=== PATIENT | female | born 2000 | race Caucasian/White ===

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

== ENCOUNTER 2020-02-26 05:33 | Outpatient (CLI) | payer OTHER, MEDICAID ==
[~2020-02-26] VITALS: Ht 162 cm; Wt 104.5 kg
[~2020-02-26 05:33] MED LIST changes: +DCS100C PO; +DOCU-143 PO; +IBUP-1780 PO; +OXYC1TAB12 PO; +OXYC1TAB87 PO
[2020-02-27] MEDS ORDERED: IBUP-1780 PO (14:12)
== END 2020-02-26 11:24 ==
LOC: PREOP 05:33
PROVIDERS: ATTEND Obstetrics & Gynecology
DX: Z01.818 Encounter for other preprocedural examination (principal)

== ENCOUNTER 2020-02-27 13:11 | Day surgery (SDC) | payer OTHER, MEDICAID ==
[2020-02-27] VITALS (9 sets, daily range): BP systolic 113–163; BP diastolic 53–90
[~2020-02-27] VITALS: Ht 162 cm; Wt 104.5 kg
[2020-02-27] MEDS ORDERED: SEVOFLURANE (ULTANE) 15 ML INHAL SOLN ONE ×2 (13:37→15:09)
[2020-02-27] MEDS ORDERED: ONDANSETRON 4 MG/2 ML (SDV) Z0FRAN ONE (13:37)
[2020-02-27] MEDS ORDERED: LIDOCAINE PF 2% 5 ML (XYLOCAINE) VIAL ONE (13:37)
[2020-02-27] MEDS ORDERED: proPOfol 200 MG/20 ML (DIPRIVAN) VIAL IV ONE (13:37)
[2020-02-27] MEDS ORDERED: MIDAZOLAM 2 MG/2 ML (VERSED) VIAL ONE (13:38)
[2020-02-27] MEDS ORDERED: fentaNYL INJECTION 100 MCG/2 ML AMP ONE (13:38)
[2020-02-27] MEDS ORDERED: LACTATED RINGERS 1,000 ML IV PRN (13:44)
[2020-02-27] MEDS ORDERED: LEVOFLOXACIN 250 MG/50 ML IVPB 50 ML IV ONE (13:45)
--- NOTE | 2020-02-27 14:10 | Progress Note-Pre Operative ---
Pre-Operative Progress Note H&P Reviewed The H&P was reviewed, patient examined and no changes noted. Date Seen by Provider: Feb 27, 2020 Time Seen by Provider: 14:09 Date H&P Reviewed: Feb 27, 2020 Time H&P Reviewed: 14:09 Pre-Operative Diagnosis: DUB/MENORRHAGIA JORDANA SCHULER MD Feb 27, 2020 14:10
[2020-02-27] MEDS ORDERED: D5 LR IV SOLUTION 1,000 ML IV SCH (14:11)
--- NOTE | 2020-02-27 14:11 | Progress Note-Post Operative ---
Post-Operative Progess Note Surgeon (s)/Metal Dresser (s) Surgeon JORDANA SCHULER MD Metal Dresser: NONE Pre-Operative Diagnosis DUB/MENORRHAGIA Post-Operative Diagnosis SAME with patghology pending Procedure & Operative Findings Date of Procedure 02/27/20 Procedure Performed/Findings HYSTEROSCOPY WITH D&C Anesthesia Type GETA Estimated Blood Loss Estimated blood loss (mL): minimal Specimens/Packing Specimens Removed ENDOMETRIAL TISSUE JORDANA SCHULER MD Feb 27, 2020 14:11
[2020-02-27] MEDS ORDERED: IBUP-1780 PO (14:12)
--- NOTE | 2020-02-27 14:13 | Discharge Inst-Surgical ---
Discharge Inst-Surgical Depart Medication/Instructions New, Converted or Re-Newed RX: Call to Patients Pharmacy Consults/Follow Up Patient Instructions: DIRECTED Orders & Referrals Follow Up Appt: Call to make follow up appt. for patient in 2 weeks. Activity: Rest for 24 hours, than as tolerated. Please call in RX to patient pharmacy. Diet: As tolerated. may shower or tub bathe as desired. No driving for 24 hours, no alcoholic beverages for 24 hours, and nothing per vagina (no tampons, douching, or intercoUrse) for 2 weeks. Patient to return to the clinic as soon as possible for: Temperature greater than 101F, Severe Pain, Foul discharge from incision or vagina, Excessive Bleeding (more than a period). Diet Discharge Diet: No Restrictions JORDANA SCHULER MD Feb 27, 2020 14:13
[2020-02-27] MEDS ORDERED: PROMETHAZINE INJ 25 MG/ML (PHENERGAN) AMP IM ONE (14:15)
[2020-02-27] MEDS ORDERED: KETOROLAC 30 MG/ML VIAL IVP ONE (14:15)
[2020-02-27] MEDS ORDERED: MEPERIDINE (DEMEROL) INJ 100 MG/ML IM ONE (14:15)
[2020-02-27] MEDS ORDERED: HYDROcodone/APAP 10 MG/325 MG (LORTAB) TAB PO PRN (14:15)
[2020-02-27] MEDS ORDERED: ONDANSETRON 4 MG/2 ML (SDV) Z0FRAN IVP PRN ×2 (14:15→15:15)
[2020-02-27 14:29] LABS: BASOPHILS % (AUTO) 0 % (0-10); EOSINOPHILS # (AUTO) 0.1 10^3/uL (0.0-0.3); EOSINOPHILS % (AUTO) 2 % (0-10); HEMATOCRIT 34 % (35-52); HEMOGLOBIN 10.9 G/DL (11.5-16.0); LYMPHOCYTES # (AUTO) 2.2 X 10^3 (1.0-4.0); LYMPHOCYTES % (AUTO) 27 % (12-44); MEAN CORPUSCULAR HEMOGLOBIN 26 PG (25-34); MEAN CORPUSCULAR HGB CONC 32 G/DL (32-36); MEAN CORPUSCULAR VOLUME 80 FL (80-99); MEAN PLATELET VOLUME 8.4 FL (7.4-10.4); MONOCYTES # (AUTO) 0.8 X 10^3 (0.0-1.0); MONOCYTES % (AUTO) 10 % (0-12); NEUTROPHILS % (AUTO) 61 % (42-75); PLATELET COUNT 383 10^3/uL (130-400); WHITE BLOOD COUNT 8.2 10^3/uL (4.3-11.0)
--- NOTE | 2020-02-27 15:11 | Anesthesia-General Post-Op ---
General Patient Condition Mental Status/LOC: Same as Preop Cardiovascular: Satisfactory Nausea/Vomiting: Absent Respiratory: Satisfactory Pain: Controlled Complications: Absent Post Op Complications Complications None Follow Up Care/Instructions Patient Instructions None needed. Anesthesia/Patient Condition Patient Condition Patient is doing well, no complaints, stable vital signs, no apparent adverse anesthesia problems. ALIA ABDI DO Feb 27, 2020 15:11
[2020-02-27] MEDS ORDERED: morphine INJ 10 MG/ML 1ML (SYR OR VIAL) IVP ONE (15:15)
[2020-02-27] MEDS ORDERED: HYDROmorphone 2 MG/ML VIAL (DILAUDID) IV ONE (15:15)
--- NOTE | 2020-02-27 23:22 | OPERATIVE REPORT ---
DATE OF SERVICE: 02/27/2020 PREOPERATIVE DIAGNOSES: Dysfunctional uterine bleeding and menorrhagia. POSTOPERATIVE DIAGNOSES: Dysfunctional uterine bleeding and menorrhagia with pathology pending. OPERATIVE PROCEDURE: Hysteroscopy with directed biopsy and D and C. OPERATIVE DESCRIPTION: With the patient in the supine position under satisfactory general anesthesia, she was repositioned in the dorsal lithotomy position in the Isael stirrups and prepped and draped in the usual fashion for vaginal surgery. Urinary bladder was drained with a straight catheter. A weighted speculum placed in posterior fornix of vagina. The cervix exposed and grasped anteriorly with a single tooth tenaculum. The patient had a copper T IUD that was removed easily and set aside for replacement later. The cervix was then serially dilated to accommodate a hysteroscope, which was introduced using LR as a distending medium. The endometrial cavity was examined. The endometrial cavity was populated with extensive numerous polypoid-appearing tissue masses. Truck Despatcher biopsy was taken and then the hysteroscope was removed and endometrial cavity sharply curettaged with a large amount of endometrial appearing tissue and polypoid-appearing tissue. The curettage was performed in all 4 quadrants to good uterine cry. The hysteroscope was reintroduced and still remained several fragments of tissue. The hysteroscope was removed. Additional curettage was performed with removal of those fragments and then the hysteroscope was used to examine the endometrial cavity final time. There was no significant bleeding and the bulk of the abnormal appearing tissue was completely removed. The IUD was replaced in the usual manner at this point with the strings protruding approximately 1.5 cm to 2 cm from the cervical os. With sponge and needle counts correct, hemostasis assured, no bleeding from the cervical os and no bleeding from the puncture sites from the tenaculum. The procedure was complete and terminated. Sponge and needle counts were correct. Blood loss was around maybe 50 to 70 mL. The patient tolerated the procedure well and was uneventfully awakened from her general anesthesia and transferred to recovery room in stable condition. Job ID: [id number] DocumentID: [id number] Dictated Date: 02/27/2020 14:55:18 Dry Chain Worker Date: 02/27/2020 23:21:50 Dictated By: JORDANA SCHULER MD [facility]
== END 2020-02-27 17:10 | disposition home or self-care (01) ==
LOC: SDC 13:11
PROVIDERS: ATTEND Obstetrics & Gynecology
DX: N84.0 Polyp of corpus uteri (principal); N92.0 Excessive and frequent menstruation with regular cycle; Z11.2 Encounter for screening for other bacterial diseases; F32.9 Major depressive disorder, single episode, unspecified; E66.9 Obesity, unspecified; Z88.1 Allergy status to other antibiotic agents; Z68.39 Body mass index [BMI] 39.0-39.9, adult; Z86.19 Personal history of other infectious and parasitic diseases
CPT/HCPCS: 36415; 84703; 85025; 87081; 88305

== ENCOUNTER 2020-08-01 20:09 | Emergency (ER) | payer OTHER, MEDICAID ==
[~2020-08-01] VITALS: Ht 162.5 cm; Wt 95.2 kg
[~2020-08-01 20:09] MED LIST changes: -RISP0.5T3; +RISP0.5T65
[2020-08-01 20:17] VITALS: BP 129/68
--- NOTE | 2020-08-01 20:29 | ED Lower Extremity ---
General Chief Complaint: Lower Extremity Stated Complaint: FALL - R ANKLE INJ Source: patient Exam Limitations: no limitations History of Present Illness Date Seen by Provider: Aug 01, 2020 Time Seen by Provider: 20:17 Initial Comments To ER with right lateral ankle pain after she fell down some stairs at home about 1.5 hours ago. No other injury. Onset: just prior to arrival Severity: moderate Pain/Injury Location: right ankle Method of Injury: fell Modifying Factors: Worse With Movement Allergies and Home Medications Allergies Coded Allergies: cefdinir (Verified Allergy, Intermediate, HIVES, 02/26/20) Home Medications Ibuprofen 800 Mg Tablet, 800 MG PO Q6H PRN for PAIN Prescribed by: JORDANA SAUL on 02/27/20 1412 Patient Home Medication List Home Medication List Reviewed: Yes Review of Systems Constitutional: see HPI EENTM: see HPI Respiratory: no symptoms reported Cardiovascular: no symptoms reported Genitourinary: no symptoms reported Musculoskeletal: see HPI Skin: no symptoms reported Psychiatric/Neurological: No Symptoms Reported Past Heiujzn-Heidbd-Sopwbl Hx Patient Social History 2nd Hand Smoke Exposure: No Recent Hopitalizations: No Immunizations Up To Date PED Vaccines UTD: Yes Date of Influenza Vaccine: Apr 24, 2019 Seasonal Allergies Seasonal Allergies: No Past Medical History Surgeries: Yes (knee sx) Adenoidectomy, Bladder Surgery, Gallbladder, Orthopedic, Tonsillectomy Respiratory: No Cardiac: No Neurological: No Reproductive Disorders: No Female Reproductive Disorders: Denies, Polycystic Ovarian Dis Sexually Transmitted Disease: No HIV/AIDS: No Genitourinary: No Gastrointestinal: No Gall Bladder Disease Musculoskeletal: No Endocrine: No HEENT: Yes (GLASSES) Loss of Vision: Denies Hearing Impairment: Denies Cancer: No Psychosocial: Yes Depression Integumentary: No Blood Disorders: No Adverse Reaction/Blood Tranf: No (N/A) Family Medical History No Pertinent Family Hx, Heart Disease, DVT/PE Physical Exam Vital Signs Capillary Refill : Height, Weight, BMI Height: 5'4.00" Weight: 207lbs. 8.0oz. [id number]; 39.81 BMI Method:Stated General Appearance: WD/WN, no apparent distress Neck: non-tender, full range of motion Hips: bilateral hip non-tender, bilateral hip normal inspection, bilateral hip normal range of motion Legs: bilateral leg non-tender, bilateral leg normal inspection, bilateral leg normal range of motion Knees: bilateral knee non-tender, bilateral knee normal inspection, bilateral knee normal range of motion Ankles: bilateral ankle non-tender, bilateral ankle normal inspection, bilateral ankle normal range of motion; right ankle other (The right ankle is normal in appearance nontender when I touch it, no swelling no erythema no deformity) Neurologic/Psychiatric: alert, normal mood/affect, oriented x 3 Skin: normal color, warm/dry Progress/Results/Core Measures Results/Orders My Orders Orders - SHANE MARQUIS APRN Ankle, Right, 3 Views (08/01/20 20:24) Departure Impression Primary Impression: Right ankle sprain Qualified Codes: S93.401A - Sprain of unspecified ligament of right ankle, initial encounter Disposition: 01 HOME, SELF-CARE Condition: Stable Departure-Patient Inst. Decision time for Depature: 20:41 Referrals: OLVIN CEJA MD (PCP/Family) Primary Care Physician Patient Instructions: Ankle Sprain Add. Discharge Instructions: 1. Tylenol and ibuprofen for pain control 2. Elevate the ankle as much as possible. All discharge instructions reviewed with patient and/or family. Voiced understanding. SHANE MARQUIS APRN Aug 01, 2020 20:29
--- NOTE | 2020-08-01 20:47 | Diagnostic Imaging Report ---
EXAMINATION: Right ankle at 8:35 p.m. INDICATION: Injury, ankle pain, three views were obtained. COMPARISON: There is no prior study available for comparison. FINDINGS: There is no fracture, dislocation or acute bony abnormality identified. The ankle mortise is not widened and the talar dome is smooth. The soft tissues are unremarkable. IMPRESSION: There is no evidence for an acute bony abnormality. Dictated by: Dictated on workstation # [id number]
== END 2020-08-01 20:46 | disposition home or self-care (01) ==
LOC: EDUNIT# 20:09 → ER 20:11
DX: S93.401A Sprain of unspecified ligament of right ankle, initial encounter (principal); Z88.1 Allergy status to other antibiotic agents; W10.9XXA Fall (on) (from) unspecified stairs and steps, initial encounter; Y92.009 Unspecified place in unspecified non-institutional (private) residence as the place of occurrence of the external cause
CPT/HCPCS: 73610

== ENCOUNTER 2020-12-22 00:26 | Emergency (ER) | payer OTHER, MEDICAID ==
[~2020-12-22] VITALS: Ht 162.5 cm; Wt 100.0 kg
[~2020-12-22 00:26] MED LIST changes: -CIPR500T4 PO; +CIPR500T5 PO; +SERT-413; +SERT-414; -SERT100T8; -SERT50TA9
--- NOTE | 2020-12-22 01:02 | ED Chest Pain ---
General Chief Complaint: Chest Pain Stated Complaint: CP Source: patient History of Present Illness Date Seen by Provider: Dec 22, 2020 Time Seen by Provider: 00:36 Initial Comments PT ARRIVES VIA POV FROM HOME C/O CHEST PAIN SINCE YESTERDAY AM PAIN ALL ACROSS UPPER CHEST PAIN IS CONSTANT NOTHING WORSENS OR IMPROVES PAIN NO RADIATION OF PAIN TOOK TYLENOL X 1 AT NOON TODAY, NO RELIEF. HAS NOT TAKEN ANYTHING ELSE FOR PAIN C/O SLIGHT SHORTNESS OF BREATH NO COUGH NO FEVER/SWEATS/CHILLS + HEADACHE + BODY ACHES NO NAUSEA/VOMITING/DIARRHEA/ABDOMINAL PAIN NO LOSS OF TASTE OR SMELL NO SORE THROAT PT HAS HISTORY OF SAME--APPROXIMATELY 5 TIMES BEFORE NO DIAGNOSIS PT WAS EXPOSED TO COVID-19 LAST WEEKEND AT [facility] FOR FATHER'S DAY WENT THRU DRIVE THRU COVID-19 TESTING AT [facility] TODAY, WAS TOLD TEST WAS NEGATIVE LMP--END OF OCTOBER, IUD IN PLACE PCP: DR. CJEA, LAST SEEN 2 MONTHS AGO FOR ROUTINE EXAM Allergies and Home Medications Allergies Coded Allergies: cefdinir (Verified Allergy, Intermediate, HIVES, 02/26/20) Home Medications Ibuprofen 800 Mg Tablet, 800 MG PO Q6H PRN for PAIN Prescribed by: JORDANA SAUL on 02/27/20 1412 Patient Home Medication List Home Medication List Reviewed: Yes Review of Systems Review of Systems Constitutional: no symptoms reported; No chills, No diaphoresis, No fever EENTM: No Symptoms Reported Respiratory: See HPI; Denies Cough; Shortness of Air Cardiovascular: See HPI, Chest Pain; Denies Edema, Denies Palpitations, Denies Syncope Gastrointestinal: No Symptoms Reported; Denies Abdominal Pain, Denies Diarrhea, Denies Nausea, Denies Vomiting Genitourinary: No Symptoms Reported Musculoskeletal: see HPI Skin: no symptoms reported; No rash Psychiatric/Neurological: See HPI, Headache Endocrine: No Symptoms Reported Hematologic/Lymphatic: No Symptoms Reported Past Wkvvigk-Tlwgbj-Vafoat Hx Past Med/Social Hx: Reviewed and Corrections made Patient Social History Alcohol Use: Denies Use Drug of Choice: DENIES Smoking Status: Former Smoker (1/2 PPD) Type Used: Cigarettes 2nd Hand Smoke Exposure: No Recent Hopitalizations: No Immunizations Up To Date PED Vaccines UTD: Yes Date of Influenza Vaccine: Apr 24, 2019 Seasonal Allergies Seasonal Allergies: No Past Medical History Surgeries: Yes Adenoidectomy, Bladder Surgery, Section, Gallbladder, Orthopedic, Tonsillectomy Respiratory: No Cardiac: No Neurological: No Reproductive Disorders: Yes (DUB) Female Reproductive Disorders: Denies, Menstrual Problems, Polycystic Ovarian Dis Sexually Transmitted Disease: No HIV/AIDS: No Genitourinary: No Gastrointestinal: Yes (S/P CHOLECYSTECTOMY) Gall Bladder Disease Musculoskeletal: Yes (RIGHT KNEE SCOPE) Endocrine: No HEENT: Yes (GLASSES; T&A; ADENOIDECTOMY) Loss of Vision: Denies Hearing Impairment: Denies Cancer: No Psychosocial: Yes Depression Integumentary: No Blood Disorders: No Adverse Reaction/Blood Tranf: No (N/A) Family Medical History No Pertinent Family Hx, Heart Disease, DVT/PE PAST SURGICAL HISTORY: -RIGHT KNEE SCOPE - 07/03/19 -HYSTEROSCOPY WITH D&C FOR DUB--02/27/20 -CHILECYSTECTOMY -TONSILLECTOMY/ADENOIDECTOMY -WISDOM TEETH -URETHRAL DILATION X 2 Physical Exam Vital Signs Vital Signs - First Documented Capillary Refill : Height, Weight, BMI Height: 5'4.00" Weight: 207lbs. 8.0oz. 94.295033oo; 36.00 BMI Method:Stated General Appearance: No Apparent Distress, WD/WN, Other (VERY FLAT AFFECT. DOES NOT APPEAR TO BE IN ANY DISCOMFORT OR DISTRESS) HEENT: PERRL/EOMI, TMs Normal, Normal ENT Inspection, Pharynx Normal, Moist Mucous Membranes Neck: Full Range of Motion, Normal Inspection, Non Tender, Supple; No Lymphadenopathy (L), No Lymphadenopathy (R) Respiratory: Chest Non Tender, Normal Breath Sounds, No Accessory Muscle Use, No Respiratory Distress Cardiovascular: No Edema, No JVD, No Murmur, Normal Peripheral Pulses, Irregularly Irregular (SINUS ARRHYTHMIA --RESPIRATION-RELATED) Gastrointestinal: Normal Bowel Sounds, No Organomegaly, No Pulsatile Mass, Non Tender, Soft Extremity: Normal Capillary Refill, Normal Inspection, Normal Range of Motion, Non Tender, No Calf Tenderness, No Pedal Edema Neurologic/Psychiatric: Alert, Oriented x3, No Motor/Sensory Deficits, Normal Mood/Affect, general foreman II-XII Norm as Tested Skin: Normal Color, Warm/Dry; No Rash Progress/Results/Core Measures Results/Orders Lab Results Laboratory Tests Test 12/22/20 00:43 12/22/20 00:55 12/22/20 01:02 Range/Units Influenza Type A (RT-PCR) Not Detected Not Detecte Influenza Type B (RT-PCR) Not Detected Not Detecte SARS-CoV-2 RNA (RT-PCR) Not Detected Not Detecte White Blood Count 11.8 H 4.3-11.0 10^3/uL Red Blood Count 4.47 3.80-5.11 10^6/uL Hemoglobin 12.8 11.5-16.0 g/dL Hematocrit 39 35-52 % Mean Corpuscular Volume 88 80-99 fL Mean Corpuscular Hemoglobin 29 25-34 pg Mean Corpuscular Hemoglobin Concent 33 32-36 g/dL Red Cell Distribution Width 15.7 H 10.0-14.5 % Platelet Count 315 130-400 10^3/uL Mean Platelet Volume 8.7 L 9.0-12.2 fL Immature Granulocyte % (Auto) 0 % Neutrophils (%) (Auto) 58 42-75 % Lymphocytes (%) (Auto) 33 12-44 % Monocytes (%) (Auto) 8 0-12 % Eosinophils (%) (Auto) 1 0-10 % Basophils (%) (Auto) 0 0-10 % Neutrophils # (Auto) 6.9 1.8-7.8 10^3/uL Lymphocytes # (Auto) 3.8 1.0-4.0 10^3/uL Monocytes # (Auto) 0.9 0.0-1.0 10^3/uL Eosinophils # (Auto) 0.1 0.0-0.3 10^3/uL Basophils # (Auto) 0.0 0.0-0.1 10^3/uL Immature Granulocyte # (Auto) 0.0 0.0-0.1 10^3/uL Erythrocyte Sedimentation Rate 12 0-20 MM/HR D-Dimer 0.53 H 0.00-0.49 UG/ML Sodium Level 140 135-145 MMOL/L Potassium Level 3.9 3.6-5.0 MMOL/L Chloride Level 106 98-107 MMOL/L Carbon Dioxide Level 22 21-32 MMOL/L Anion Gap 12 5-14 MMOL/L Blood Urea Nitrogen 11 7-18 MG/DL Creatinine 0.86 0.60-1.30 MG/DL Estimat Glomerular Filtration Rate > 60 BUN/Creatinine Ratio 13 Glucose Level 92 70-105 MG/DL Calcium Level 8.9 8.5-10.1 MG/DL Corrected Calcium 9.0 8.5-10.1 MG/DL Magnesium Level 1.9 1.6-2.4 MG/DL Total Bilirubin 0.2 0.1-1.0 MG/DL Aspartate Amino Transf (AST/SGOT) 15 5-34 U/L Alanine Aminotransferase (ALT/SGPT) 14 0-55 U/L Alkaline Phosphatase 83 40-136 U/L Total Creatine Kinase 108 29-168 U/L Creatine Kinase MB 0.5 <6.6 NG/ML Myoglobin 25.3 10.0-92.0 NG/ML Troponin I < 0.028 <0.028 NG/ML C-Reactive Protein High Sensitivity 0.73 H 0.00-0.50 MG/DL B-Type Natriuretic Peptide 16.8 <100.0 PG/ML Total Protein 6.9 6.4-8.2 GM/DL Albumin 3.9 3.2-4.5 GM/DL Amylase Level 34 25-125 U/L Lipase 17 8-78 U/L Serum Test, Qualitative NEGATIVE NEGATIVE Urine Color YELLOW Urine Clarity CLEAR Urine pH 6.0 5-9 Urine Specific [place] >=1.030 1.016-1.022 Urine Protein NEGATIVE NEGATIVE Urine Glucose (UA) NEGATIVE NEGATIVE Urine Ketones NEGATIVE NEGATIVE Urine Nitrite NEGATIVE NEGATIVE Urine Bilirubin NEGATIVE NEGATIVE Urine Urobilinogen 0.2 < = 1.0 MG/DL Urine Leukocyte Esterase NEGATIVE NEGATIVE Urine RBC (Auto) NEGATIVE NEGATIVE Urine RBC NONE /HPF Urine WBC NONE /HPF Urine Squamous Epithelial Cells 2-5 /HPF Urine Crystals NONE /LPF Urine Bacteria NEGATIVE /HPF Urine Casts NONE /LPF Urine Mucus SMALL H /LPF Urine Culture Indicated NO Urine Opiates Screen NEGATIVE NEGATIVE Urine Oxycodone Screen NEGATIVE NEGATIVE Urine Methadone Screen NEGATIVE NEGATIVE Urine Propoxyphene Screen NEGATIVE NEGATIVE Urine Barbiturates Screen NEGATIVE NEGATIVE Ur Tricyclic Antidepressants Screen NEGATIVE NEGATIVE Urine Phencyclidine Screen NEGATIVE NEGATIVE Urine Amphetamines Screen NEGATIVE NEGATIVE Urine Methamphetamines Screen NEGATIVE NEGATIVE Urine Benzodiazepines Screen NEGATIVE NEGATIVE Urine Cocaine Screen NEGATIVE NEGATIVE Urine Cannabinoids Screen NEGATIVE NEGATIVE My Orders Orders - MALAIKA BULLOCK DO Ekg Tracing (12/22/20 00:36) Monitor-Rhythm Ecg Trace Only (12/22/20 00:36) Urine Bedside (12/22/20 00:41) BNP (12/22/20 00:41) Cbc With Automated Diff (12/22/20 00:41) Comprehensive Metabolic Panel (12/22/20 00:41) Creatine Kinase (12/22/20 00:41) Creatine Kinase Mb (12/22/20 00:41) Drug Screen Stat (Urine) (12/22/20 00:41) Hcg,Qualitative Serum (12/22/20 00:41) Magnesium (12/22/20 00:41) Ua Culture If Indicated (12/22/20 00:41) Myoglobin Serum (12/22/20 00:41) Troponin I (12/22/20 00:41) Chest 1 View, Ap/Pa Only (12/22/20 00:41) Covid 19 Inhouse Test (12/22/20 00:41) Influenza A And B By Pcr (12/22/20 00:41) Amylase (12/22/20 00:57) Hs C Reactive Protein (12/22/20 00:57) Fibrin Degradation Products (12/22/20 00:57) Lipase (12/22/20 00:57) Erythrocyte Sedimentation Rate (12/22/20 00:57) Ketorolac Injection (Toradol Injection) (12/22/20 01:45) Vital Signs/I&O 12/22/20 12/22/20 12/22/20 00:37 00:37 01:40 Temp 36.8 Pulse 76 76 Resp 18 18 B/P (MAP) 122/79 (93) 122/79 Pulse Ox 99 99 O2 Delivery Room Air Room Air Room Air Progress Progress Note : Progress Note PLACED IN ISOLATION ROOM PPE WORN AT ALL TIMES COVID-19 TESTING DONE UNEVENTFUL ER STAY Initial ECG Impression Date: Dec 22, 2020 Initial ECG Impression Time: 00:39 Initial ECG Rate: 79 Initial ECG Rhythm: Normal Sinus (SINUS ARRHYTHMIA) Initial ECG Impression: Nonspecific Changes Diagnostic Imaging Comments CXR--NO ACUTE PROCESS, PENDING RADIOLOGIST REVIEW Reviewed: Reviewed by Me Departure Impression Primary Impression: Anterior chest wall pain Additional Impression: Close exposure to COVID-19 virus Disposition: 01 HOME, SELF-CARE Condition: Stable Departure-Patient Inst. Decision time for Depature: 01:40 Referrals: OLVIN CEJA MD (PCP/Family) Primary Care Physician Patient Instructions: Chest Pain (DC), Preventing the Spread of an Infectious Disease, COVID-19 ED Add. Discharge Instructions: QUARANTINE FOR ANOTHER 4-5 DAYS ( NO ONE ENTERS OR LEAVES YOUR HOUSE ) , IF YOU ARE STILL HAVING SYMPTOMS YOU WILL NEED TO BE RETESTED FOR COVID-19 IN A FEW DAYS TYLENOL AND MOTRIN NEEDED FOR PAIN FOLLOW UP WITH YOUR DR IN 3-4 DAYS IF NO BETTER All discharge instructions reviewed with patient and/or family. Voiced understanding. MALAIKA BULLOCK DO Dec 22, 2020 01:02
[2020-12-22 01:07] LABS: BILIRUBIN,URINE NEGATIVE (NEGATIVE); CLARITY,URINE CLEAR; COLOR,URINE YELLOW; GLUCOSE, URINE (UA) NEGATIVE (NEGATIVE); KETONES,URINE NEGATIVE (NEGATIVE); LEUKOCYTE ESTERASE ,URINE NEGATIVE (NEGATIVE); NITRITE,URINE NEGATIVE (NEGATIVE); PROTEIN,URINE NEGATIVE (NEGATIVE)
[2020-12-22 01:09] LABS: BASOPHILS % (AUTO) 0 % (0-10); EOSINOPHILS # (AUTO) 0.1 10^3/uL (0.0-0.3); EOSINOPHILS % (AUTO) 1 % (0-10); HEMATOCRIT 39 % (35-52); HEMOGLOBIN 12.8 g/dL (11.5-16.0); LYMPHOCYTES # (AUTO) 3.8 10^3/uL (1.0-4.0); LYMPHOCYTES % (AUTO) 33 % (12-44); MEAN CORPUSCULAR HEMOGLOBIN 29 pg (25-34); MEAN CORPUSCULAR HGB CONC 33 g/dL (32-36); MEAN CORPUSCULAR VOLUME 88 fL (80-99); MEAN PLATELET VOLUME 8.7 fL (9.0-12.2); MONOCYTES # (AUTO) 0.9 10^3/uL (0.0-1.0); MONOCYTES % (AUTO) 8 % (0-12); NEUTROPHILS # (AUTO) 6.9 10^3/uL (1.8-7.8); NEUTROPHILS % (AUTO) 58 % (42-75); PLATELET COUNT 315 10^3/uL (130-400); WHITE BLOOD COUNT 11.8 10^3/uL (4.3-11.0)
[2020-12-22 01:16] LABS: ALBUMIN 3.9 GM/DL (3.2-4.5); CHLORIDE 106 MMOL/L (98-107); POTASSIUM 3.9 MMOL/L (3.6-5.0); SODIUM 140 MMOL/L (135-145)
[2020-12-22 01:17] LABS: CALCIUM 8.9 MG/DL (8.5-10.1)
[2020-12-22 01:18] LABS: AMYLASE 34 U/L (25-125)
[2020-12-22 01:19] LABS: GLUCOSE 92 MG/DL (70-105); TOTAL PROTEIN 6.9 GM/DL (6.4-8.2)
[2020-12-22 01:20] LABS: BILIRUBIN,TOTAL 0.2 MG/DL (0.1-1.0); CARBON DIOXIDE 22 MMOL/L (21-32)
[2020-12-22 01:22] LABS: ALKALINE PHOSPHATASE 83 U/L (40-136); CREATININE SERUM 0.86 MG/DL (0.60-1.30); GFR ESTIMATED > 60
[2020-12-22 01:23] LABS: BUN/CREATININE RATIO 13
[2020-12-22 01:24] LABS: AMPHETAMINE SCREEN, URINE NEGATIVE (NEGATIVE); BARBITURATE SCREEN URINE NEGATIVE (NEGATIVE); BENZODIAZEPINES SCREEN URINE NEGATIVE (NEGATIVE); CANNABINOID SCREEN, URINE NEGATIVE (NEGATIVE); COCAINE SCREEN URINE NEGATIVE (NEGATIVE); METHADONE STAT NEGATIVE (NEGATIVE); METHAMPHETAMINE SCREEN URINE S NEGATIVE (NEGATIVE); OPIATE SCREEN URINE NEGATIVE (NEGATIVE); OXYCODONE STAT NEGATIVE (NEGATIVE); PROPOXYPHENE STAT NEGATIVE (NEGATIVE); TRICYCLIC ANTIDEPRESSANTS SCRE NEGATIVE (NEGATIVE)
[2020-12-22 01:25] LABS: BACTERIA,URINE NEGATIVE /HPF
[2020-12-22 01:25] LABS: ALANINE AMINOTRANSFERASE 14 U/L (0-55); MAGNESIUM 1.9 MG/DL (1.6-2.4)
[2020-12-22 01:26] LABS: CREATINE KINASE 108 U/L (29-168); LIPASE 17 U/L (8-78)
[2020-12-22 01:29] LABS: ERYTHROCYTE SEDIMENTATION RATE 12 MM/HR (0-20)
[2020-12-22 01:34] LABS: CREATINE KINASE MB 0.5 NG/ML (<6.6)
[2020-12-22 01:40] VITALS: BP 122/79
[2020-12-22] MEDS ORDERED: KETOROLAC 30 MG/ML VIAL IVP ONE (01:45)
--- NOTE | 2020-12-22 08:18 | Diagnostic Imaging Report ---
INDICATION: Chest pain. Frontal chest obtained at 12:58 a.m. compared with 01/26/2018. FINDINGS: Heart and mediastinal silhouette are normal in appearance. The lungs appear clear. There is no pneumothorax or pleural fluid. IMPRESSION: No acute process in the chest. Dictated by: Dictated on workstation # [id number]
== END 2020-12-22 01:40 | disposition home or self-care (01) ==
LOC: EDUNIT# 00:26 → ER 00:30
DX: R07.89 Other chest pain (principal); Z20.822 Contact with and (suspected) exposure to COVID-19; Z87.891 Personal history of nicotine dependence
CPT/HCPCS: 36415; 71045; 80053; 80306; 81000; 82150; 82550; 82553; 83690; 83735; 83874; 83880; 84484; 84703; 85025; 85379; 85652; 86141; 87636; 93005; 93041

== ENCOUNTER → 2020-12-31 | Outpatient (CLI) | payer OTHER, MEDICAID ==
[~2020-12-31] MED LIST changes: +CATHETER FLUSH 10 ML SYR IV PRN; +HOLD METFORMIN - RECEIVED CONTRAST 20 ML VIAL IV SCH; +IOHEXOL 350 MG/ML 100 ML (OMNIPAQUE 350) VIAL IV ONE; +NS 100 ML (IVPB) BAG IV ONE
--- NOTE | 2020-12-31 12:53 | Diagnostic Imaging Report ---
PROCEDURE: CT angiography of the chest with contrast. TECHNIQUE: Multiple contiguous axial images were obtained through the chest after uneventful bolus administration of intravenous contrast. 3D reconstructed CTA MIP acquisitions were also performed. Auto Exposure Controls were utilized during the CT exam to meet ALARA standards for radiation dose reduction. INDICATION: Chest pain, shortness of breath. COMPARISON: 01/26/2018 FINDINGS: Heart size is normal. The pulmonary arteries and aorta grossly unremarkable. There is no pulmonary embolism. No pericardial effusion or mediastinal lymphadenopathy seen. The lungs are clear throughout. No mass or nodular infiltrate is present. Lung volumes are low. Visualized upper abdominal solid organs are grossly normal. Osseous structures are age-appropriate. There is a stable mass in the right breast likely benign fibroadenoma. IMPRESSION: 1. No pulmonary embolism or acute infiltrate identified. Dictated by: Dictated on workstation # [id number]
== END ==
LOC: RAD 11:00
DX: R07.9 Chest pain, unspecified (principal); R06.02 Shortness of breath
CPT/HCPCS: 71275

== ENCOUNTER 2021-03-16 12:29 | Emergency (ER) | payer OTHER, MEDICAID ==
[~2021-03-16] VITALS: Ht 162 cm; Wt 95.0 kg
[~2021-03-16 12:29] MED LIST changes: -CATHETER FLUSH 10 ML SYR IV PRN; -HOLD METFORMIN - RECEIVED CONTRAST 20 ML VIAL IV SCH; -IOHEXOL 350 MG/ML 100 ML (OMNIPAQUE 350) VIAL IV ONE; -NS 100 ML (IVPB) BAG IV ONE
--- NOTE | 2021-03-16 13:46 | ED Cough/URI ---
General Chief Complaint: Cough/Cold/Flu Symptoms Stated Complaint: BACK PAIN,TOUSSAINT,BODY ACHES,CP,COUGH SOB Nursing Triage Note: Patient reports to ED for chest discomfort, back pain, headache, and bodyaches x's 4 days. Denies known exposure. Patient denies that the chest discomfort radiates anywhere, reports it feels like something is stuck. Patient amb. to room 8 without difficulty. Source: patient History of Present Illness Date Seen by Provider: Mar 16, 2021 Time Seen by Provider: 13:10 Initial Comments PT ARRIVES VIA POV--FEMALE FRIEND ALSO BEING SEEN FOR SAME STATES SHE STARTED HAVING SYMPTOMS ON Sunday03/13/21 C/O HEADACHE C/O BODY ACHES C/O "CHEST PAIN"--FEELS LIKE SOMETHING IS STUCK IN HER CHEST. DOES NOT HURT TO BREATHE OR COUGH C/O SLIGHT COUGH NO SHORTNESS OF BREATH NO FEVER/SWEATS/CHILLS NO SORE THROAT NO LOSS OF TASTE OR SMELL NO GI SYMPTOMS HAS NOT TAKEN ANYTHING FOR SYMPTOMS SYMPTOMS NO DIFFERENT TODAY PT STATES SHE WENT TO [facility] THIS MORNING AROUND 10 AM, AND WAS TOLD TO COME HERE BECAUSE SHE HAD COMPLAINED OF CHEST PAIN. NO TESTS WERE DONE THERE PT IS NOT VACCINATE FOR COVID-19 PT WORKS AT [employer] IN [place]--DOES NOT WEAR A MASK AT WORK, AND CUSTOMERS ARE NOT REQUIRED TO WEAR A MASK NO ONE IN HOUSEHOLD IS ILL. NO CHRONIC ILLNESSES PT IS NON-SMOKER LMP 03/03/21. NO CONTROL. PCP: DR. CEJA, ALSO GOES TO [facility] Allergies and Home Medications Allergies Coded Allergies: cefdinir (Verified Allergy, Intermediate, HIVES, 02/26/20) Patient Home Medication List Ibuprofen (Ibuprofen) 800 Mg Tablet, 800 MG PO Q6H PRN for PAIN Prescribed by: JORDANA SAUL on 02/27/20 1412 Prednisone (Prednisone) 20 Mg Tab, 40 MG PO DAILY Prescribed by: MALAIKA BULLOCK on 03/16/21 1458 Review of Systems Review of Systems Constitutional: no symptoms reported; No chills, No diaphoresis, No dizziness, No fever, No malaise, No weakness EENTM: no symptoms reported Respiratory: see HPI, cough; No short of breath Cardiovascular: see HPI, chest pain Gastrointestinal: no symptoms reported Genitourinary: no symptoms reported : No LMP: Mar 03, 2021 Musculoskeletal: see HPI Skin: no symptoms reported Psychiatric/Neurological: See HPI, Headache Hematologic/Lymphatic: No Symptoms Reported Immunological/Allergic: no symptoms reported Past Xjknewp-Oehvfs-Nuqyul Hx Patient Social History Tobacco Use?: No Substance use?: No Alcohol Use?: No Pt feels they are or have been: No Immunizations Up To Date PED Vaccines UTD: Yes Seasonal Allergies Seasonal Allergies: No Past Medical History Surgery/Hospitalization HX: RIGHT KNEE SCOPE 06/2019 Surgeries: Yes Adenoidectomy, Bladder Surgery, Section, Gallbladder, Orthopedic, Tonsillectomy Respiratory: No Cardiac: No Neurological: No Last Menstrual Period: Mar 03, 2021 Reproductive Disorders: Yes (DUB) Female Reproductive Disorders: Denies, Menstrual Problems, Polycystic Ovarian Dis Sexually Transmitted Disease: No HIV/AIDS: No Genitourinary: No Gastrointestinal: Yes (S/P CHOLECYSTECTOMY) Gall Bladder Disease Musculoskeletal: Yes (RIGHT KNEE SCOPE) Endocrine: No HEENT: Yes (GLASSES; T&A; ADENOIDECTOMY) Loss of Vision: Denies Hearing Impairment: Denies Cancer: No Psychosocial: Yes Depression Integumentary: No Blood Disorders: No Adverse Reaction/Blood Tranf: No (N/A) Family Medical History No Pertinent Family Hx, Heart Disease, DVT/PE PAST SURGICAL HISTORY: -RIGHT KNEE SCOPE - 07/03/19 -HYSTEROSCOPY WITH D&C FOR DUB--02/27/20 -CHILECYSTECTOMY -TONSILLECTOMY/ADENOIDECTOMY -WISDOM TEETH -URETHRAL DILATION X 2 Physical Exam Vital Signs - First Documented Capillary Refill : Less Than 3 Seconds Height: 5'4.00" Weight: 207lbs. 8.0oz. 94.231382ht; 36.00 BMI Method:Stated General Appearance: WD/WN, no apparent distress, obese, other (DOES NOT APPEAR ILL OR TO BE IN ANY DISCOMFORT OR DISTRESS. NO COUGH OR DYSPNEA NOTED. ) HEENT: PERRL/EOMI, normal ENT inspection Neck: normal inspection Respiratory: chest non-tender, normal breath sounds, no respiratory distress, no accessory muscle use Cardiovascular: normal peripheral pulses, regular rate, rhythm, no edema, no JVD, no murmur Gastrointestinal: non tender, soft Extremities: normal inspection, no pedal edema, no calf tenderness, normal capillary refill Neurologic/Psychiatric: egg crater II-XII nml as tested, no motor/sensory deficits, alert, oriented x 3, other (FLAT AFFECT) Skin: normal color, warm/dry; No rash Progress/Results/Core Measures Suspected Sepsis SIRS Temperature: Pulse: 96 Respiratory Rate: 18 Laboratory Tests 03/16/21 13:30: White Blood Count 5.5 Blood Pressure / Mean: 89 Laboratory Tests 03/16/21 13:30: Creatinine 0.74, Platelet Count 302, Total Bilirubin 0.2 Results/Orders Lab Results Laboratory Tests Test 03/16/21 13:30 03/16/21 13:34 03/16/21 14:22 Range/Units White Blood Count 5.5 4.3-11.0 10^3/uL Red Blood Count 4.67 3.80-5.11 10^6/uL Hemoglobin 13.6 11.5-16.0 g/dL Hematocrit 41 35-52 % Mean Corpuscular Volume 89 80-99 fL Mean Corpuscular Hemoglobin 29 25-34 pg Mean Corpuscular Hemoglobin Concent 33 32-36 g/dL Red Cell Distribution Width 13.4 10.0-14.5 % Platelet Count 302 130-400 10^3/uL Mean Platelet Volume 8.7 L 9.0-12.2 fL Immature Granulocyte % (Auto) 0 % Neutrophils (%) (Auto) 48 42-75 % Lymphocytes (%) (Auto) 39 12-44 % Monocytes (%) (Auto) 11 0-12 % Eosinophils (%) (Auto) 2 0-10 % Basophils (%) (Auto) 1 0-10 % Neutrophils # (Auto) 2.6 1.8-7.8 10^3/uL Lymphocytes # (Auto) 2.1 1.0-4.0 10^3/uL Monocytes # (Auto) 0.6 0.0-1.0 10^3/uL Eosinophils # (Auto) 0.1 0.0-0.3 10^3/uL Basophils # (Auto) 0.0 0.0-0.1 10^3/uL Immature Granulocyte # (Auto) 0.0 0.0-0.1 10^3/uL Erythrocyte Sedimentation Rate 7 0-20 MM/HR Sodium Level 139 135-145 MMOL/L Potassium Level 3.7 3.6-5.0 MMOL/L Chloride Level 106 98-107 MMOL/L Carbon Dioxide Level 26 21-32 MMOL/L Anion Gap 7 5-14 MMOL/L Blood Urea Nitrogen 8 7-18 MG/DL Creatinine 0.74 0.60-1.30 MG/DL Estimat Glomerular Filtration Rate 100 BUN/Creatinine Ratio 11 Glucose Level 110 H 70-105 MG/DL Calcium Level 9.3 8.5-10.1 MG/DL Corrected Calcium 9.2 8.5-10.1 MG/DL Total Bilirubin 0.2 0.1-1.0 MG/DL Aspartate Amino Transf (AST/SGOT) 20 5-34 U/L Alanine Aminotransferase (ALT/SGPT) 24 0-55 U/L Alkaline Phosphatase 91 40-136 U/L C-Reactive Protein High Sensitivity 0.90 H 0.00-0.50 MG/DL Total Protein 6.9 6.4-8.2 GM/DL Albumin 4.1 3.2-4.5 GM/DL Serum Test, Qualitative NEGATIVE NEGATIVE Influenza Type A Antigen NEGATIVE NEGATIVE Influenza Type B Antigen NEGATIVE NEGATIVE My Orders Orders - MALAIKA BULLOCK DO Chest 1 View, Ap/Pa Only (03/16/21 13:09) Cbc With Automated Diff (03/16/21 13:09) Comprehensive Metabolic Panel (03/16/21 13:09) Procalcitonin (Pct) (03/16/21 13:09) Hs C Reactive Protein (03/16/21 13:09) Erythrocyte Sedimentation Rate (03/16/21 13:09) Coronavirus Sars-Cov-2 So 2018 (03/16/21 13:09) Hcg,Qualitative Serum (03/16/21 13:39) Influenza A & B Antigens (03/16/21 14:22) Vital Signs/I&O 03/16/21 03/16/21 03/16/21 13:04 13:04 13:04 Temp 36.5 36.5 Pulse 96 96 Resp 18 18 B/P (MAP) 122/73 Pulse Ox 97 97 O2 Delivery Room Air Room Air Room Air Capillary Refill : Less Than 3 Seconds Blood Pressure Mean: 89 Progress Note : Progress Note PLACED IN ISOLATION ROOM PPE WORN AT ALL TIMES COVID-19 TESTING PERFORMED--SEND OUT TEST UNEVENTFUL ER STAY NO COUGH NO FEVER NO HYPOXIA NO DYSPNEA PT ADVISED OF NEED FOR QUARANTINE UNTIL CLEARED BY DR. PT ADVISED THAT HOSPITAL STAFF WOULD CALL HER IF HER RESULTS WERE POSITIVE. ALSO DISCUSSED REGENERON TREATMENT IF SHE WAS DEEMED TO BE A CANDIDATE Departure Impression Primary Impression: Person under investigation for COVID-19 Disposition: HOME, SELF-CARE Condition: Stable Departure-Patient Inst. Decision time for Depature: 14:50 Referrals: OLVIN CEJA MD (PCP/Family) Primary Care Physician Patient Instructions: COVID-19 Tests, Preventing the Spread of an Infectious Disease Add. Discharge Instructions: LOTS OF CLEAR LIQUIDS--WATER, BROTH, JELLO, GATORADE TYLENOL AND MOTRIN NEEDED FOR PAIN OR FEVER OVER THE COUNTER MUCINEX DM FOR COUGH QUARANTINE YOURSELF AND ALL HOUSEHOLD MEMBERS AND CLOSE CONTACTS FOR 2 WEEKS, OR UNTIL CLEARED BY DR. HOSPITAL STAFF MEMBER WILL CALL YOU IF YOU HAVE A POSITIVE COVID TEST IF YOUR TEST IS NEGATIVE YOU NEED TO BE RE-TESTED IN 2-3 DAYS RETURN TO ER IF SYMPTOMS WORSEN All discharge instructions reviewed with patient and/or family. Voiced understanding. Scripts Prednisone (Prednisone) 20 Mg Tab 40 MG PO DAILY, #6 TAB 0 Refills Prov: MALAIKA BULLOCK DO 03/16/21 Work/School Note: Work Release Form Date Seen in the Emergency Department: Mar 16, 2021 Return to Work: Mar 30, 2021 MALAIKA BULLOCK DO Mar 16, 2021 13:46
[2021-03-16 13:58] LABS: BASOPHILS % (AUTO) 1 % (0-10); EOSINOPHILS # (AUTO) 0.1 10^3/uL (0.0-0.3); EOSINOPHILS % (AUTO) 2 % (0-10); HEMATOCRIT 41 % (35-52); HEMOGLOBIN 13.6 g/dL (11.5-16.0); LYMPHOCYTES # (AUTO) 2.1 10^3/uL (1.0-4.0); LYMPHOCYTES % (AUTO) 39 % (12-44); MEAN CORPUSCULAR HEMOGLOBIN 29 pg (25-34); MEAN CORPUSCULAR HGB CONC 33 g/dL (32-36); MEAN CORPUSCULAR VOLUME 89 fL (80-99); MEAN PLATELET VOLUME 8.7 fL (9.0-12.2); MONOCYTES # (AUTO) 0.6 10^3/uL (0.0-1.0); MONOCYTES % (AUTO) 11 % (0-12); NEUTROPHILS # (AUTO) 2.6 10^3/uL (1.8-7.8); NEUTROPHILS % (AUTO) 48 % (42-75); PLATELET COUNT 302 10^3/uL (130-400); WHITE BLOOD COUNT 5.5 10^3/uL (4.3-11.0)
[2021-03-16 14:01] LABS: ALBUMIN 4.1 GM/DL (3.2-4.5); POTASSIUM 3.7 MMOL/L (3.6-5.0)
[2021-03-16 14:02] LABS: CALCIUM 9.3 MG/DL (8.5-10.1)
[2021-03-16 14:04] LABS: TOTAL PROTEIN 6.9 GM/DL (6.4-8.2)
[2021-03-16 14:05] LABS: BILIRUBIN,TOTAL 0.2 MG/DL (0.1-1.0)
[2021-03-16 14:07] LABS: CREATININE SERUM 0.74 MG/DL (0.60-1.30)
--- NOTE | 2021-03-16 14:12 | Diagnostic Imaging Report ---
INDICATION: Chest discomfort. Headache. Back pain. Bodyaches. COMPARISON: 12/22/2020 FINDINGS: Single frontal radiographic view of the chest was obtained and demonstrates normal cardiac silhouette and pulmonary vasculature. The lungs show diminished inspiratory volumes, but otherwise appear clear. There is no large effusion or pneumothorax. Osseous structures show no gross acute abnormalities. IMPRESSION: 1. Low lung volumes, but no evidence of failure or focal infiltrate. Dictated by: Dictated on workstation # [id number]
[2021-03-16 14:16] LABS: ERYTHROCYTE SEDIMENTATION RATE 7 MM/HR (0-20)
[2021-03-16] MEDS ORDERED: PRD20T PO (14:58)
[2021-03-16 15:12] VITALS: BP 127/75
== END 2021-03-16 15:12 | disposition home or self-care (01) ==
LOC: EDUNIT# 12:29 → ER 12:30
DX: Z20.822 Contact with and (suspected) exposure to COVID-19 (principal); E66.9 Obesity, unspecified; Z68.36 Body mass index [BMI] 36.0-36.9, adult
CPT/HCPCS: 36415; 71045; 80053; 84145; 84703; 85025; 85652; 86141; 87636; 87804; 93005

== ENCOUNTER → 2021-10-17 | Outpatient (CLI) | payer OTHER, MEDICAID ==
[~2021-10-17] MED LIST changes: +CYCL10TA25; -CYCL10TA9; -DCS100C PO; +DOCU-239 PO; +PRD20T PO
== END ==
LOC: LABNPT 16:43
PROVIDERS: ATTEND Obstetrics & Gynecology
DX: R10.2 Pelvic and perineal pain (principal)
CPT/HCPCS: 87088

== ENCOUNTER 2021-10-31 13:48 | Emergency (ER) | payer BC, MEDICAID ==
[~2021-10-31] VITALS: Ht 162 cm; Wt 95.0 kg
[2021-10-31] MEDS ORDERED: AMOX500C2 PO ×2 (14:05→14:14)
--- NOTE | 2021-10-31 14:06 | ED EENT ---
History of Present Illness General Chief Complaint: Dental Problems/Pain Stated Complaint: ABCESS TOOTH Nursing Triage Note: PT CO OF DENTAL PAIN ON L LOWER JAW TOOTH, RATES PAIN 3/10. STARTED ON SUNDAY. STATES HAS DENTAL APPT [place] AT [address] [place]ENG. PT IS APPROX 14 WEEKS Source: patient Exam Limitations: no limitations History of Present Illness Date Seen by Provider: October 31, 2021 Time Seen by Provider: 13:49 Initial Comments Patient to the ER by private conveyance with chief complaint of 2 days of pain surrounding the left lower molar. No fevers chills difficulty swallowing or breathing. No vocal changes. She is not on antibiotics. She has about [address] Berumen. She has been taking Tylenol Extra Strength routinely. Allergies and Home Medications Allergies Coded Allergies: cefdinir (Verified Allergy, Intermediate, HIVES, 02/26/20) Patient Home Medication List Home Medication List Reviewed: Yes Amoxicillin (Amoxicillin) 500 Mg Capsule, 500 MG PO TID Prescribed by: HELENA GUIDRY on 10/31/21 1405 Ibuprofen (Ibuprofen) 800 Mg Tablet, 800 MG PO Q6H PRN for PAIN Prescribed by: JORDANA SAUL on 02/27/20 1412 Prednisone (Prednisone) 20 Mg Tab, 40 MG PO DAILY Prescribed by: MALAIKA BULLOCK on 03/16/21 1458 Review of Systems Review of Systems Constitutional: No chills, No fever Eyes: Denies Blindness, Denies Blurred Vision Ears: Denies Dizziness, Denies Pain Nose: denies clots, denies congestion Mouth: denies clots; pain; denies swelling Throat: denies pain, denies swelling All Other Systems Reviewed Negative Unless Noted: Yes Past Amrfyzf-Ycmhqf-Wxtule Hx Patient Social History Tobacco Use?: No Use of E-Cig and/or Vaping dev: No Substance use?: No Immunizations Up To Date PED Vaccines UTD: Yes Seasonal Allergies Seasonal Allergies: No Past Medical History Surgery/Hospitalization HX: RIGHT KNEE SCOPE 06/2019 Surgeries: Yes Adenoidectomy, Bladder Surgery, Section, Gallbladder, Orthopedic, Tonsillectomy Respiratory: No Cardiac: No Neurological: No Reproductive Disorders: Yes (DUB) Female Reproductive Disorders: Denies, Menstrual Problems, Polycystic Ovarian Dis Sexually Transmitted Disease: No HIV/AIDS: No Genitourinary: No Gastrointestinal: Yes (S/P CHOLECYSTECTOMY) Gall Bladder Disease Musculoskeletal: Yes (RIGHT KNEE SCOPE) Endocrine: No HEENT: Yes (GLASSES; T&A; ADENOIDECTOMY) Loss of Vision: Denies Hearing Impairment: Denies Cancer: No Psychosocial: Yes Depression Integumentary: No Blood Disorders: No Adverse Reaction/Blood Tranf: No (N/A) Family Medical History No Pertinent Family Hx, Heart Disease, DVT/PE PAST SURGICAL HISTORY: -RIGHT KNEE SCOPE - 07/03/19 -HYSTEROSCOPY WITH D&C FOR DUB--02/27/20 -CHILECYSTECTOMY -TONSILLECTOMY/ADENOIDECTOMY -WISDOM TEETH -URETHRAL DILATION X 2 Physical Exam Vital Signs Vital Signs - First Documented 10/31/21 13:55 Temp 36.7 Pulse 77 Resp 18 B/P (MAP) 121/77 (92) Pulse Ox 98 Height, Weight, BMI Height: 5'4.00" Weight: 207lbs. 8.0oz. 94.405376jz; 36.00 BMI Method:Stated General Appearance: WD/WN, no apparent distress Eyes: bilateral eye normal inspection, bilateral eye EOMI Ears: bilateral ear auricle normal, bilateral ear canal normal Nose: normal inspection; No discharge Mouth/Throat: other (Dental caries without pointing or gingival lesion) Progress/Results/Core Measures Results/Orders My Orders Orders - HELENA GUIDRY Lidocaine 2% Viscous 15 Ml (Xylocaine Vi (10/31/21 14:15) Medications Given in ED Current Medications Medications Dose Ordered Sig/[place] Route Start Time Stop Time Status Last Admin Dose Admin Lidocaine HCl 5 ml ONCE ONCE PO 10/31/21 14:15 10/31/21 14:16 10/31/21 14:12 5 ML Vital Signs/I&O 10/31/21 13:55 Temp 36.7 Pulse 77 Resp 18 B/P (MAP) 121/77 (92) Pulse Ox 98 Blood Pressure Mean: 92 Progress Progress Note : Time: 14:04 Progress Note Viscous lidocaine and amoxicillin. Departure Impression Primary Impression: Dental abscess Disposition: 01 HOME, SELF-CARE Condition: Stable Departure-Patient Inst. Decision time for Depature: 14:04 Referrals: OLVIN CEJA MD (PCP/Family) Primary Care Physician Patient Instructions: Tooth Abscess (DC) Add. Discharge Instructions: Amoxicillin 500 mg 3 times a day for 10 days. Follow-up with a dentist. Tylenol 1000 mg every 8 hours as needed for pain. 5 mL of viscous lidocaine applied to gauze over the tooth in question every 6 hours as needed for pain. Do not eat or drink for 30 minutes after applying the gauze and viscous lidocaine. All discharge instructions reviewed with patient and/or family. Voiced understanding. Scripts Amoxicillin (Amoxicillin) 500 Mg Capsule 500 MG PO TID for 10 Days, #30 CAP 0 Refills Prov: HELENA GUIDRY 10/31/21 HELENA GUIDRY October 31, 2021 14:05
[2021-10-31 14:14] VITALS: BP 121/77
[2021-10-31] MEDS ORDERED: LIDOCAINE 2% VISCOUS 15 ML UDC PO ONE (14:15)
== END 2021-10-31 14:15 | disposition home or self-care (01) ==
LOC: EDUNIT# 13:48 → ER 13:49
DX: O99.891 Other specified diseases and conditions complicating pregnancy (principal); K04.7 Periapical abscess without sinus; K02.9 Dental caries, unspecified; Z3A.14 14 weeks gestation of pregnancy
CPT/HCPCS: 99282

== ENCOUNTER 2021-12-04 17:21 | Emergency (ER) | payer BC, MEDICAID ==
[~2021-12-04 17:21] MED LIST changes: +AMOX500C2 PO
--- NOTE | 2021-12-04 18:02 | ED GI ---
General Chief Complaint: OB > 20 WEEKS Stated Complaint: 19 WKS PREG - HEADACHE - FATIGUE - CRAMPING Nursing Triage Note: PT AMB TO RM 9 WITH C/O LOW BELLY CRAMPING SINCE YESTERDAY AND BACK PAIN. PT IS 19 WEEKS Source of Information: Patient Exam Limitations: No Limitations (HELENA GUIDRY) History of Present Illness Date Seen by Provider: Dec 04, 2021 Time Seen by Provider: 17:41 Initial Comments Patient to the ER by private conveyance with chief complaint for the past 1 day she been having some bilateral lower abdominal cramping. She is also having fatigue and malaise. No fevers chills nausea vomiting diarrhea constipation. She is 19 weeks with a due date of April 30. First child was delivered by section. She follows with Dr. Berumen for primary obstetrics. No significant problems with thus far. No cough shortness of air or chest pain. No visual changes or increased swelling in hands or feet. (HELENA GUIDRY) Allergies and Home Medications Allergies Coded Allergies: cefdinir (Verified Allergy, Intermediate, HIVES, 02/26/20) Patient Home Medication List Home Medication List Reviewed: Yes (HELENA GUIDRY) Amoxicillin (Amoxicillin) 500 Mg Capsule, 500 MG PO TID Prescribed by: HELENA GUIDRY on 10/31/21 1414 Ibuprofen (Ibuprofen) 800 Mg Tablet, 800 MG PO Q6H PRN for PAIN Prescribed by: JORDANA SAUL on 02/27/20 1412 Nitrofurantoin Monohyd/M-Cryst (Macrobid 100 mg Capsule) 100 Mg Capsule, 1 TAB PO BID Prescribed by: MALAIKA CHARLES on 12/04/21 1858 Prednisone (Prednisone) 20 Mg Tab, 40 MG PO DAILY Prescribed by: MALAIKA CHARLES on 03/16/21 1458 Review of Systems Review of Systems Constitutional: No chills, No diaphoresis; malaise EENTM: No Blurred Vision, No Double Vision Respiratory: Denies Cough, Denies Shortness of Air Cardiovascular: Denies Chest Pain, Denies Lightheadedness Gastrointestinal: Denies Constipated, Denies Diarrhea Genitourinary: Denies Burning, Denies Discharge Musculoskeletal: No back pain, No joint pain (HELENA GUIDRY) All Other Systems Reviewed Negative Unless Noted: Yes (HELENA GUIDRY) Past Bsevdjq-Awjepo-Ekcyff Hx Patient Social History Tobacco Use?: No Use of E-Cig and/or Vaping dev: No Substance use?: No Alcohol Use?: No Pt feels they are or have been: No (HELENA GUIDRY) Immunizations Up To Date PED Vaccines UTD: Yes Influenza Vaccine Up-to-Date: Yes; Up-to-Date (HELENA GUIDRY) Seasonal Allergies Seasonal Allergies: No (HELENA GUIDRY) Past Medical History Surgery/Hospitalization HX: RIGHT KNEE SCOPEC-section 06/2019, Surgeries: Yes Adenoidectomy, Bladder Surgery, Section, Gallbladder, Orthopedic, Tonsillectomy Respiratory: No Cardiac: No Neurological: No Expected Date of Delivery: Apr 30, 2022 Reproductive Disorders: Yes (DUB) Female Reproductive Disorders: Denies, Menstrual Problems, Polycystic Ovarian Dis Sexually Transmitted Disease: No HIV/AIDS: No Genitourinary: No Gastrointestinal: Yes (S/P CHOLECYSTECTOMY) Gall Bladder Disease Musculoskeletal: Yes (RIGHT KNEE SCOPE) Endocrine: No HEENT: Yes (GLASSES; T&A; ADENOIDECTOMY) Loss of Vision: Denies Hearing Impairment: Denies Cancer: No Psychosocial: Yes Depression Integumentary: No Blood Disorders: No Adverse Reaction/Blood Tranf: No (N/A) (HELENA GUIDRY) Family Medical History No Pertinent Family Hx, Heart Disease, DVT/PE PAST SURGICAL HISTORY: -RIGHT KNEE SCOPE - 07/03/19 -HYSTEROSCOPY WITH D&C FOR DUB--02/27/20 -CHILECYSTECTOMY -TONSILLECTOMY/ADENOIDECTOMY -WISDOM TEETH -URETHRAL DILATION X 2 (HELENA GUIDRY) Physical Exam Vital Signs Vital Signs - First Documented 12/04/21 17:40 Temp 35.9 Pulse 87 Resp 18 B/P (MAP) 139/76 (97) (MALAIKA CHARLES DO) Vital Signs Capillary Refill : (HELENA GUIDRY) Height/Weight/BMI Height: 5'4.00" Weight: 207lbs. 8.0oz. 94.869008wy; 36.00 BMI Method:Stated General Appearance: WD/WN, no apparent distress HEENT: PERRL/EOMI, normal ENT inspection, TMs normal; No pharynx normal (Mildly dry oral mucosa) Neck: full range of motion, supple, normal inspection Respiratory: no respiratory distress, no accessory muscle use Cardiovascular: normal peripheral pulses, regular rate, rhythm Peripheral Pulses: 2+ Radial Pulses (R), 2+ Radial Pulses (L) Gastrointestinal: normal bowel sounds, non tender, soft, other (Gravid, fundus at the level of the umbilicus. heart tones 140) Extremities: normal range of motion, normal capillary refill Neurologic/Psychiatric: alert, normal mood/affect, oriented x 3 Skin: normal color, warm/dry (BREA,HELENA J) Progress/Results/Core Measures Results/Orders Lab Results Laboratory Tests Test 12/04/21 17:50 12/04/21 18:00 Range/Units Urine Color YELLOW Urine Clarity SLIGHTLY CLOUDY Urine pH 7.0 5-9 Urine Specific [place] 1.015 L 1.016-1.022 Urine Protein NEGATIVE NEGATIVE Urine Glucose (UA) NEGATIVE NEGATIVE Urine Ketones NEGATIVE NEGATIVE Urine Nitrite NEGATIVE NEGATIVE Urine Bilirubin NEGATIVE NEGATIVE Urine Urobilinogen 1.0 < = 1.0 MG/DL Urine Leukocyte Esterase 1+ H NEGATIVE Urine RBC (Auto) NEGATIVE NEGATIVE Urine RBC NONE /HPF Urine WBC 2-5 /HPF Urine Squamous Epithelial Cells 5-10 /HPF Urine Crystals PRESENT H /LPF Urine Amorphous Sediment LARGE JULIO URATES H /LPF Urine Bacteria FEW H /HPF Urine Casts NONE /LPF Urine Mucus NEGATIVE /LPF Urine Culture Indicated YES White Blood Count 13.0 H 4.3-11.0 10^3/uL Red Blood Count 3.83 3.80-5.11 10^6/uL Hemoglobin 11.8 11.5-16.0 g/dL Hematocrit 35 35-52 % Mean Corpuscular Volume 90 80-99 fL Mean Corpuscular Hemoglobin 31 25-34 pg Mean Corpuscular Hemoglobin Concent 34 32-36 g/dL Red Cell Distribution Width 13.6 10.0-14.5 % Platelet Count 283 130-400 10^3/uL Mean Platelet Volume 8.6 L 9.0-12.2 fL Immature Granulocyte % (Auto) 1 % Neutrophils (%) (Auto) 72 42-75 % Lymphocytes (%) (Auto) 20 12-44 % Monocytes (%) (Auto) 7 0-12 % Eosinophils (%) (Auto) 1 0-10 % Basophils (%) (Auto) 0 0-10 % Neutrophils # (Auto) 9.3 H 1.8-7.8 X 10^3 Lymphocytes # (Auto) 2.6 1.0-4.0 X 10^3 Monocytes # (Auto) 0.9 0.0-1.0 X 10^3 Eosinophils # (Auto) 0.1 0.0-0.3 10^3/uL Basophils # (Auto) 0.0 0.0-0.1 10^3/uL Immature Granulocyte # (Auto) 0.1 0.0-0.1 10^3/uL Sodium Level 135 135-145 MMOL/L Potassium Level 4.0 3.6-5.0 MMOL/L Chloride Level 105 98-107 MMOL/L Carbon Dioxide Level 21 21-32 MMOL/L Anion Gap 9 5-14 MMOL/L Blood Urea Nitrogen 7 7-18 MG/DL Creatinine 0.56 L 0.60-1.30 MG/DL Estimat Glomerular Filtration Rate 133 BUN/Creatinine Ratio 13 Glucose Level 82 70-105 MG/DL Calcium Level 9.4 8.5-10.1 MG/DL C-Reactive Protein High Sensitivity 1.55 H 0.00-0.50 MG/DL Influenza Type A (RT-PCR) Not Detected Not Detecte Influenza Type B (RT-PCR) Not Detected Not Detecte SARS-CoV-2 RNA (RT-PCR) Not Detected Not Detecte (MALAIKA CHARLES DO) My Orders Orders - MALAIKA CHARLES DO Covid 19 Inhouse Test (12/04/21 18:44) Influenza A And B By Pcr (12/04/21 18:44) Isolation Central Supply Req (12/04/21 18:44) Ed Iv/Invasive Line Start (12/04/21 18:44) Lactated Ringers (Lr 1000 Ml Iv Solution (12/04/21 18:45) Rx-Nitrofurantoin [place] (Rx-Macrobid) (12/04/21 19:21) (MALAIKA CHARLES DO) Vital Signs/I&O 12/04/21 12/04/21 17:40 19:26 Temp 35.9 35.9 Pulse 87 82 Resp 18 18 B/P (MAP) 139/76 (97) 122/85 (MALAIKA CHARLES DO) Blood Pressure Mean: 97 Progress Progress Note : Time: 18:01 Progress Note Well-appearing gravid adult female with signs of mild dehydration. She is tolerating oral fluids we will get her some Pedialyte check some basic labs and a urinalysis. She declined anything for pain. (HELENA GUIDRY) Progress Note : Progress Note [address] GUIDRY, ALL STUDIES PENDING. PT IS DRINKING WATER AND GATORADE AT THIS TIME, AND SITTING EQUATORIAL GUINEAN-STYLE, PLAYING/TEXTING ON PHONE, SMILING. DOES NOT APPEAR TO BE IN ANY DISCOMFORT OR DISTRESS. FHR 140'S PT WALKS UPRIGHT AND MOVES WITHOUT DIFFICULTY. (MALAIKA CHARLES DO) Transfer of Care Time: 18:00 Care transferred to: Dr. Charles (HELENA GUIDRY) Departure Impression Primary Impression: Pain of round ligament affecting , antepartum Additional Impression: UTI (urinary tract infection) in in second trimester Disposition: 01 HOME, SELF-CARE Condition: Stable Departure-Patient Inst. Referrals: JORDANA BERUMEN MD NO,LOCAL PHYSICIAN (PCP) Primary Care Physician Patient Instructions: Round Ligament Pain, Urinary Tract Infections in Add. Discharge Instructions: INCREASE YOUR FLUID INTAKE--ESPECIALLY CLEAR LIQUIDS TYLENOL NEEDED FOR PAIN FOLLOW UP WITH DR. BERUMEN IN 2-3 DAYS FOR FURTHER CARE, RETURN TO ER IF WORSE All discharge instructions reviewed with patient and/or family. Voiced understanding. Scripts Nitrofurantoin Monohyd/M-Cryst (Macrobid 100 mg Capsule) 100 Mg Capsule 1 TAB PO BID, #20 CAP Prov: MALAIKA CHARLES DO 12/04/21 HELENA GUIDRY Dec 04, 2021 18:02 MALAIKA CHARLES DO Dec 04, 2021 18:58
[2021-12-04 18:08] LABS: AMORPHOUS SEDIMENT,UR LARGE AMOR URATES /LPF; BACTERIA,URINE FEW /HPF; BILIRUBIN,URINE NEGATIVE (NEGATIVE); CLARITY,URINE SLIGHTLY CLOUDY; COLOR,URINE YELLOW; GLUCOSE, URINE (UA) NEGATIVE (NEGATIVE); KETONES,URINE NEGATIVE (NEGATIVE); LEUKOCYTE ESTERASE ,URINE 1+ (NEGATIVE); NITRITE,URINE NEGATIVE (NEGATIVE); PROTEIN,URINE NEGATIVE (NEGATIVE)
[2021-12-04 18:13] LABS: HEMATOCRIT 35 % (35-52); HEMOGLOBIN 11.8 g/dL (11.5-16.0); MEAN CORPUSCULAR HEMOGLOBIN 31 pg (25-34); MEAN CORPUSCULAR HGB CONC 34 g/dL (32-36); MEAN CORPUSCULAR VOLUME 90 fL (80-99); MEAN PLATELET VOLUME 8.6 fL (9.0-12.2); PLATELET COUNT 283 10^3/uL (130-400)
[2021-12-04 18:14] LABS: BASOPHILS % (AUTO) 0 % (0-10); EOSINOPHILS # (AUTO) 0.1 10^3/uL (0.0-0.3); EOSINOPHILS % (AUTO) 1 % (0-10); LYMPHOCYTES # (AUTO) 2.6 X 10^3 (1.0-4.0); LYMPHOCYTES % (AUTO) 20 % (12-44); MONOCYTES # (AUTO) 0.9 X 10^3 (0.0-1.0); MONOCYTES % (AUTO) 7 % (0-12); NEUTROPHILS # (AUTO) 9.3 X 10^3 (1.8-7.8); NEUTROPHILS % (AUTO) 72 % (42-75)
[2021-12-04 18:32] LABS: CALCIUM 9.4 MG/DL (8.5-10.1); CREATININE SERUM 0.56 MG/DL (0.60-1.30)
[2021-12-04] MEDS ORDERED: LACTATED RINGERS 1,000 ML IV ONE (18:45)
[2021-12-04] MEDS ORDERED: NITR-65 PO (18:58)
[2021-12-04] MEDS ORDERED: RX-NITROFURANTOIN 100 MG (MACROBID) CAP PPK#2 PO STA (19:21)
[2021-12-04 19:26] VITALS: BP 122/85
== END 2021-12-04 19:28 | disposition home or self-care (01) ==
LOC: EDUNIT# 17:21 → ER 17:23
DX: O23.42 Unspecified infection of urinary tract in pregnancy, second trimester (principal); N39.0 Urinary tract infection, site not specified; Z90.6 Acquired absence of other parts of urinary tract; Z3A.19 19 weeks gestation of pregnancy; Z20.822 Contact with and (suspected) exposure to COVID-19
CPT/HCPCS: 36415; 80048; 81000; 85025; 86141; 87088; 87636; 99283

== ENCOUNTER 2021-12-23 10:47 | Outpatient (CLI) | payer BC, MEDICAID ==
[~2021-12-23] VITALS: Ht 162.5 cm; Wt 103.1 kg
[2021-12-23 11:10] VITALS: BP 131/70
[2021-12-23 11:14] VITALS: BP 131/70
[2021-12-23 11:20] VITALS: BP 131/70
[2021-12-23] MEDS ORDERED: PREN1TAB19 PO (11:24)
[2021-12-23 11:32] LABS: BILIRUBIN,URINE NEGATIVE (NEGATIVE); CLARITY,URINE CLEAR; COLOR,URINE YELLOW; GLUCOSE, URINE (UA) NEGATIVE (NEGATIVE); KETONES,URINE NEGATIVE (NEGATIVE); LEUKOCYTE ESTERASE ,URINE NEGATIVE (NEGATIVE); NITRITE,URINE NEGATIVE (NEGATIVE); PROTEIN,URINE NEGATIVE (NEGATIVE)
[2021-12-23 11:40] LABS: BACTERIA,URINE MODERATE /HPF; WBC,URINE 0-2 /HPF
--- NOTE | 2021-12-28 08:06 | Physician Query-Final Dx ---
Clinic Account Progress/Dx Physician Query: Please give diagnosis Please include # weeks gestation Date of Service Dec 23, 2021 at 10:47 NIKKI,JunDec 28, 2021 08:06
== END 2021-12-23 13:30 | disposition home or self-care (01) ==
LOC: WSo 10:47 → LDRP 10:51 → WSo 13:30
PROVIDERS: ATTEND Obstetrics & Gynecology
DX: O26.899 Other specified pregnancy related conditions, unspecified trimester (principal); Z3A.00 Weeks of gestation of pregnancy not specified
CPT/HCPCS: 81000; 87088

== ENCOUNTER 2022-01-15 09:49 | Outpatient (CLI) | payer BC, MEDICAID ==
[~2022-01-15 09:49] MED LIST changes: +PREN1TAB19 PO
[2022-01-15 09:58] VITALS: BP 129/67
[2022-01-15 10:17] VITALS: BP 129/67
[2022-01-15 11:04] LABS: BILIRUBIN,URINE NEGATIVE (NEGATIVE); CLARITY,URINE CLEAR; COLOR,URINE YELLOW; GLUCOSE, URINE (UA) NEGATIVE (NEGATIVE); KETONES,URINE NEGATIVE (NEGATIVE); LEUKOCYTE ESTERASE ,URINE NEGATIVE (NEGATIVE); NITRITE,URINE NEGATIVE (NEGATIVE); PROTEIN,URINE NEGATIVE (NEGATIVE)
[2022-01-15 11:19] LABS: BASOPHILS % (AUTO) 0 % (0-10); EOSINOPHILS # (AUTO) 0.1 10^3/uL (0.0-0.3); EOSINOPHILS % (AUTO) 1 % (0-10); HEMATOCRIT 33 % (35-52); LYMPHOCYTES # (AUTO) 2.4 10^3/uL (1.0-4.0); LYMPHOCYTES % (AUTO) 16 % (12-44); MEAN CORPUSCULAR HEMOGLOBIN 31 pg (25-34); MEAN CORPUSCULAR HGB CONC 33 g/dL (32-36); MEAN CORPUSCULAR VOLUME 93 fL (80-99); MEAN PLATELET VOLUME 8.3 fL (9.0-12.2); MONOCYTES # (AUTO) 1.2 10^3/uL (0.0-1.0); MONOCYTES % (AUTO) 8 % (0-12); NEUTROPHILS # (AUTO) 11.3 10^3/uL (1.8-7.8); NEUTROPHILS % (AUTO) 75 % (42-75); PLATELET COUNT 277 10^3/uL (130-400); WHITE BLOOD COUNT 15.2 10^3/uL (4.3-11.0)
[2022-01-15 11:20] LABS: BACTERIA,URINE MODERATE /HPF; SQUAMOUS EPITHELIAL CELL,UR RARE /HPF
[2022-01-15 11:39] LABS: BAND NEUTROPHILS 0 %; BASOPHILS % (MANUAL) 0 %; EOSINOPHILS % (MANUAL) 0 %; LYMPHOCYTES % (MANUAL) 15 %; MONOCYTES % (MANUAL) 6 %; NEUTROPHILS % (MANUAL) 79 %; RBC MORPH NORMAL
[2022-01-15] MEDS: D5 LR IV SOLUTION 1,000 ML IV SCH ×2 (12:15→13:16)
--- NOTE | 2022-01-16 08:13 | Physician Query-Final Dx ---
NIKKI,01/16/22 0813: Clinic Account Progress/Dx Physician Query: Please give diagnosis Please include # weeks gestation Date of Service Jan 15, 2022 at 09:49 JORDANA SCHULER MD 01/17/22 1307: Clinic Account Progress/Dx DIAGNOSIS: Diagnosis 27 weeks with false labor NIKKI,JunJan 16, 2022 08:13 JORDANA SCHULER MD Jan 17, 2022 13:07
== END 2022-01-15 14:35 | disposition home or self-care (01) ==
LOC: LDRP 09:49 → WSo 09:49
PROVIDERS: ATTEND Obstetrics & Gynecology
DX: O26.892 Other specified pregnancy related conditions, second trimester (principal); R25.2 Cramp and spasm; Z3A.25 25 weeks gestation of pregnancy
CPT/HCPCS: 81000; 85007; 85027; 87088; 96360; 96361; G0463; 36415; 99213

== ENCOUNTER → 2022-01-17 | Outpatient (CLI) | payer BC, MEDICAID | LOC: LABNPT 11:45 | PROVIDERS: ATTEND Obstetrics & Gynecology | DX: R80.9 Proteinuria, unspecified (principal) | CPT/HCPCS: 82570; 84156 ==